=== PATIENT | male | born 1990 | race Caucasian/White ===

== ENCOUNTER 2020-01-22 20:24 | Emergency (ER) | payer OTHER, SELFPAY ==
[2020-01-22 20:25] VITALS: BP 142/73; PULSE 84; RESP 15; TEMP 36.8; O2SAT 99; BMI 30.2
--- NOTE | 2020-01-22 21:16 | ED_ITS ---
HPI - General Adult General Chief complaint: Fever Stated complaint: Flu like symptoms Time Seen by Provider: 01/22/20 21:09 Source: patient Mode of arrival: ambulatory Limitations: no limitations History of Present Illness HPI narrative: This is a 29-year-old male who presents for rising temperatures throughout the day with a reported T-max of 100? and associated mild sore throat as well as mild headache but he attributes this more to his job which requires him to use a significant amount of time of computer usage but denies any shortness of breath, chest pain/palpitations. In addition, he states he is here with his girlfriend. Related Data Home Medications Medication Instructions Recorded Confirmed dextroamphetamine-amphetamine 20 mg PO DAILY 01/22/20 01/22/20 [Adderall XR] Allergies Allergy/AdvReac Type Severity Reaction Status Date / Time Penicillins [PCN] Allergy Rash Verified 01/22/20 20:33 Review of Systems Review of Systems: Pertinent positives and negatives as stated in HPI 10 point review of systems is otherwise negative. PMFSH Past Medical History Source: nursing notes reviewed Medical History No known health problems Surgical History No history of previous surgery Social History Social History Advance Directives: No Advance Directives Information Provided: No Physical Exam Vital Signs: Vital Signs: Last Vital Signs Temp 98.2 F 01/22/20 20:25 Pulse 84 01/22/20 20:25 Resp 15 01/22/20 20:25 BP 142/73 H 01/22/20 20:25 Pulse Ox 99 01/22/20 20:25 Body Mass Index 30.2 VITAL SIGNS: Reviewed. GENERAL: Well developed, well nourished, in no acute distress. HEAD: Normocephalic/atraumatic, EYES: PERRLA, EOMI intact without pain, no nystagmus/pallor/icterus noted EARS: Ext canals without abnormality, TMs non-bulging and non-erythematous NOSE: Nares patent bilateral OROPHARYNX: no oral lesions noted, posterior pharynx clear and non-erythematous without noted tonsillar enlargement/erythema/exudates NECK: Supple, no adenopathy LUNGS: Normal breath sounds. No adventitious sounds or accessory muscle use. SpO2<99> CARDIOVASCULAR: Regular rate and rhythm without noted murmurs, no JVD or lower extremity edema. ABDOMEN: Soft, non-tender, non-distended with bowel sounds. No rigidity. No guarding. No palpable masses or hernias noted MUSCULOSKELETAL: No tenderness, deformities, or effusions noted on gross inspection. EXTREMITIES: No cyanosis, clubbing or edema. SKIN: Inspection of the skin reveals no rashes, ulcerations, jaundice, pallor, or petechiae. NEUROLOGIC: Alert and oriented x 4. Strength and sensation to light touch were grossly intact x 4. Course Course Course Narrative: This is a 29-year-old male with history and clinical presentation most consistent with viral syndrome and call happened takes with his girlfriend who is also being evaluated here in the emergency department and is a teacher with a possible COVID-19 exposure. He is neither short of breath, nor is he having difficulty breathing, no evidence of hypoxia or tachypnea or being febrile. He will be tested for COVID-19 and was given strict instructions regarding self quarantine as per [place] guidelines. Discharge Plan Discharge Clinical Impression: Viral syndrome, At increased risk of exposure to COVID-19 virus Patient Disposition: Home, Self-Care Instructions: Viral Syndrome (ED), COVID-19 (Coronavirus Disease 2019) (ED) Additional Instructions: 1. Tylenol 1000 mg, orally, every 6 hours as needed for temperatures greater than 100.4 or body aches. Do not exceed 4000 mg within 24 hours. 2. Ibuprofen 400 mg, orally with milk or food, every 6 hours as needed for temperatures greater than 100.4 or body aches. 3. Increase fluid hydration especially with water. 4. Please do not hesitate to return to the emergency department should you experience any significant worsening of shortness of breath, breathing difficulties, palpitations that are not relieved with [id number] analgesics. 5. You have been COVID-19 tested today and must maintain self quarantine status as per the [place] guidelines until the results of your testing or called to you. The patient and/or family acknowledge understanding of results (as applicable), diagnosis, treatment plan, need for follow up, and symptoms that should prompt a return to the emergency room. Prescriptions: No Action dextroamphetamine-amphetamine [Adderall XR] 20 mg Capsule,Extended Release 24hr 20 mg PO DAILY RF: 0 Referrals: Physician,Unknown [Primary Care Provider] - 2 days
--- NOTE | 2020-01-22 21:43 | PC.NURSE ---
pt denies pain no sob. covid 19 tested and ready for discharge.
== END 2020-01-22 21:43 | disposition home or self-care (01) ==
PROVIDERS: Emergency Provider Student in an Organized Health Care Education/Training Program
DX: B34.9 Viral infection, unspecified (principal); R50.9 Fever, unspecified; Z20.828 Contact with and (suspected) exposure to other viral communicable diseases
CPT/HCPCS: 99283; U0003